=== PATIENT | female | born 1985 | race African-American/Black ===

== ENCOUNTER 2016-09-14 12:18 | Emergency (ER) | payer MEDICAID | END 2016-09-14 13:40 | disposition home or self-care (01) | LOC: D.ER 12:18 | DX: S39.012A Strain of muscle, fascia and tendon of lower back, initial encounter (principal); X58.XXXA Exposure to other specified factors, initial encounter; Y93.89 Activity, other specified; Y92.89 Other specified places as the place of occurrence of the external cause; M62.838 Other muscle spasm; J06.9 Acute upper respiratory infection, unspecified; E11.9 Type 2 diabetes mellitus without complications; Z79.4 Long term (current) use of insulin; I10 Essential (primary) hypertension; F17.200 Nicotine dependence, unspecified, uncomplicated ==